=== PATIENT | female | born 1980 ===

== ENCOUNTER 2016-07-18 15:48 | Observation (INO) | payer MEDICAID, OTHER ==
[2016-07-18 16:00] VITALS: BMI 39.6
[2016-07-18] MEDS ORDERED: Lactated Ringer's 1,000 ML IV SCH (16:00)
--- NOTE | 2016-07-18 16:20 | OBHP ---
Datetime: 07/18/2016 16:13 IP Adm Impression: , intrauterine IP Chief Complaint Other: 35 year old complains of right upper quadrant pain, vomiting and diarrhea since yesterday. No blood in vomitus or stolls. No radiation of pain. Eats at home with family and no body else is sick. 2 previous C/Sections IP Admit Plan: Observation/Evaluation Admit Comment, IP Provider: Gastroenteritis, R/O Cholecystitis, R/O Appendicitis. Pelvic Type - PN: Adequate Extremities - PN: Abnormal Abdomen - PN: Normal Back - PN: Normal Breast - PN: Not Done Lungs - PN: Normal Heart - PN: Normal Thyroid - PN: Not Done Neurologic - PN: Not Done HEENT - PN: Not Done General - PN: Normal FHR - Baseline A Provider: 150 Comments, ACOG Physical Exam: Varicosities left leg Gestation - Est Wks by US: 23.0 Vital Signs Provider: Reviewed; Within Normal Limits IP Chief Complaint: Illness NICHD Decel Fetus A IP Provider: None Genitourinary Exam: Normal DTRs - PN: Normal
[2016-07-18 16:31] LABS: BASO % 0.2 % (0.0-2.0); EOS # 0.1 K/uL (0.0-0.7); EOS % 0.8 % (0.0-4.0); HEMATOCRIT 32.2 % (34.0-47.0); LYMPH % 27.1 % (20.0-40.0); MEAN CELL VOLUME 80.7 fL (81.0-99.0); MEAN CORPUSCULAR HEMOGLOBIN 26.4 pg (27.0-31.0); MEAN CORPUSCULAR HGB CONC 32.7 g/dL (33.0-37.0); MEAN PLATELET VOLUME 8.9 fL (7.2-11.7); MONO # 0.5 K/uL (0.0-0.8); MONO % 7.1 % (0.0-10.0); NRBC % 0.1 % (0.0-2.0); RED CELL DISTRIBUTION WIDTH 13.9 % (11.5-14.5); WHITE BLOOD COUNT 7.2 K/uL (4.8-10.8)
[2016-07-18 16:37] LABS: CHLORIDE 104 mmol/L (98-107)
[2016-07-18 16:38] LABS: POTASSIUM 3.6 mmol/L (3.6-5.2); SODIUM 134 mmol/L (132-148)
[2016-07-18 16:40] LABS: BILIRUBIN,TOTAL 0.6 mg/dL (0.2-1.3); CARBON DIOXIDE 20 mmol/L (22-30); GFR AFRICAN-AMERICAN > 60
[2016-07-18 16:41] LABS: ALKALINE PHOSPHATASE 71 U/L (38-126); ALT/SGPT 16 U/L (9-52); AST/SGOT 16 U/L (14-36); BLOOD UREA NITROGEN 3 mg/dL (7-17); CALCIUM 8.2 mg/dl (8.6-10.4); GLUCOSE,RANDOM 75 mg/dL (65-105); TOTAL PROTEIN 6.5 g/dL (6.3-8.3)
[2016-07-18 16:50] LABS: RBC URINE 1 /hpf (0-3); TRANSITIONAL EPITHIAL < 1 /hpf (0-3); URINE BACTERIA RARE (<OCC); URINE BILIRUBIN NEGATIVE (NEGATIVE); URINE BLOOD NEGATIVE (NEGATIVE); URINE COLOR Yellow (YELLOW); URINE GLUCOSE (UA) NORMAL (Normal); URINE KETONE TRACE mg/dL (NEGATIVE); URINE LEUKOCYTE ESTERASE NEG Leu/uL (Negative); URINE PROTEIN NEGATIVE (NEGATIVE); URINE UROBILINOGEN NORMAL mg/dL (0.2-1.0); WBC URINE 1 /hpf (0-5)
--- NOTE | 2016-07-18 18:14 | US ---
HISTORY: Cholecystitis R/O Appendicitis in COMPARISON: None. TECHNIQUE: Sonographic evaluation of the abdomen. FINDINGS: LIVER: Measures 16.7 cm. Hepatopedal blood flow. Fatty infiltration manifest ultrasonographically as increased echogenicity of the liver parenchyma. No mass. No intrahepatic bile duct dilatation. GALLBLADDER: Status post cholecystectomy. No abnormality is seen in the gallbladder fossa. COMMON BILE DUCT: Measures 11.5 mm. Dilated common bile duct without intrahepatic bile duct dilatation PANCREAS: Unremarkable as visualized. No mass. No ductal dilatation. RIGHT KIDNEY: Measures 4.8 x 14.1cm. Normal echogenicity. No calculus, mass, or hydronephrosis. LEFT KIDNEY: Measures 6.2 x 13.5cm. Normal echogenicity. No calculus, mass, or hydronephrosis. SPLEEN: Normal in size and contour. No mass. AORTA: No aneurysmal dilatation. IVC: Unremarkable. OTHER FINDINGS: Nondiagnostic assessment of the appendix. The appendix is not visualized. Incidental finding(s):. Solitary right lower quadrant lymph node identified measuring 6 x 14 mm. None. IMPRESSION: No acute findings related to/accounting for the clinical presentation.
--- NOTE | 2016-07-18 19:36 | OBPN ---
Datetime: 07/18/2016 19:34 IP Progress Impression Other: Abdominal sonogram normal IP Progress Plan: Discharge Datetime: 07/18/2016 16:13 FHR - Baseline A Provider: 150 Gestation - Est Wks by US: 23.0 Vital Signs Provider: Reviewed; Within Normal Limits NICHD Decel Fetus A IP Provider: None
== END 2016-07-18 19:45 | disposition home or self-care (01) ==
LOC: C.EROB 15:48 → C.4D 16:00 → INTOOBSV 16:00
PROVIDERS: ADMIT Obstetrics & Gynecology; ATTEND Obstetrics & Gynecology
DX: O21.9 Vomiting of pregnancy, unspecified (principal); K52.9 Noninfective gastroenteritis and colitis, unspecified; R19.7 Diarrhea, unspecified
CPT/HCPCS: 76700; 80053; 81001; 85025; 99283; G0378; J7120

== ENCOUNTER 2016-11-04 08:24 | Inpatient (IN) | payer MEDICAID ==
--- NOTE | 2016-11-04 08:20 | OBADHP ---
Datetime: 07/18/2016 16:13 IP Chief Complaint Other: 35 year old complains of right upper quadrant pain, vomiting and diarrhea since yesterday. No blood in vomitus or stolls. No radiation of pain. Eats at home with family and no body else is sick. 2 previous C/Sections Admit Comment, IP Provider: Gastroenteritis, R/O Cholecystitis, R/O Appendicitis. Pelvic Type - PN: Adequate Extremities - PN: Abnormal Abdomen - PN: Normal Back - PN: Normal Breast - PN: Not Done Lungs - PN: Normal Heart - PN: Normal Thyroid - PN: Not Done Neurologic - PN: Not Done HEENT - PN: Not Done General - PN: Normal FHR - Baseline A Provider: 150 Comments, ACOG Physical Exam: Varicosities left leg Gestation - Est Wks by US: 23.0 Vital Signs Provider: Reviewed; Within Normal Limits IP Chief Complaint: Illness NICHD Decel Fetus A IP Provider: None Genitourinary Exam: Normal DTRs - PN: Normal IP Adm Impression: , intrauterine IP Admit Plan: Observation/Evaluation
[2016-11-04 08:25] VITALS: BMI 41.1
[2016-11-04] MEDS ORDERED: Sodium Citrate/Citric Acid 15 ml Sol PO ONE (08:25)
[2016-11-04] MEDS ORDERED: cefOXitin IV 2 gm in Dextrose 2 GM/50 ML BAG IVPB ONE ×2 (08:25→09:28)
--- NOTE | 2016-11-04 08:44 | OBADHP ---
Datetime: 11/04/2016 08:37 Admit Comment, IP Provider: at 39=weeks her for schuled repeat c/s , no ctxs, vb, lof,+fm obhx 2 x c/s pmh de med pnv all nkda psh c/s mulu de a/p at 39weeks her for schuled c/s admit to l_dpo/ivf labs pain ma skin abxs or aware informed consent taken r/a/b disc Pelvic Type - PN: Adequate Extremities - PN: Normal Abdomen - PN: Normal Back - PN: Normal Breast - PN: Normal Lungs - PN: Normal Heart - PN: Normal Thyroid - PN: Normal Neurologic - PN: Normal HEENT - PN: Normal General - PN: Normal FHR - Baseline A Provider: 130 Contraction Comments Provider: occ Comments, ACOG Physical Exam: gravid,non tender IP Hx Assessment: The History has been Reviewed and is Current Vital Signs Provider: Reviewed; Within Normal Limits IP Chief Complaint: Scheduled Section NICHD Variability Prov Fetus A: Moderate 6-25bpm NICHD Accel Fetus A IP Provider: 15X15 FHR Category Provider Fetus A: Category I Genitourinary Exam: Normal DTRs - PN: Normal EGA AdmitDate IP: 39.2 IP Adm Impression: Term, intrauterine ; No Active Labor; Intact Membranes IP Admit Plan: Admit to unit; Initiate Section protocol
[2016-11-04 09:08] LABS: BASO % 0.5 % (0.0-2.0); EOS # 0.1 K/uL (0.0-0.7); EOS % 0.9 % (0.0-4.0); HEMATOCRIT 32.1 % (34.0-47.0); LYMPH # 2.5 K/uL (1.0-4.3); LYMPH % 32.6 % (20.0-40.0); MEAN CELL VOLUME 75.3 fL (81.0-99.0); MEAN CORPUSCULAR HEMOGLOBIN 24.4 pg (27.0-31.0); MEAN CORPUSCULAR HGB CONC 32.4 g/dL (33.0-37.0); MEAN PLATELET VOLUME 8.7 fL (7.2-11.7); MONO # 0.6 K/uL (0.0-0.8); MONO % 7.6 % (0.0-10.0); RED CELL DISTRIBUTION WIDTH 16.4 % (11.5-14.5); WHITE BLOOD COUNT 7.7 K/uL (4.8-10.8)
[2016-11-04 09:09] LABS: CHLORIDE 103 mmol/L (98-107)
[2016-11-04 09:10] LABS: POTASSIUM 3.7 mmol/L (3.6-5.2); SODIUM 132 mmol/L (132-148)
[2016-11-04 09:12] LABS: GFR AFRICAN-AMERICAN > 60
[2016-11-04 09:13] LABS: BLOOD UREA NITROGEN 6 mg/dL (7-17); CALCIUM 8.8 mg/dl (8.6-10.4); CARBON DIOXIDE 20 mmol/L (22-30); GLUCOSE,RANDOM 74 mg/dL (65-105); RBC URINE 4 /hpf (0-3); URINE BACTERIA FEW (<OCC); URINE BILIRUBIN NEGATIVE (NEGATIVE); URINE BLOOD NEGATIVE (NEGATIVE); URINE COLOR Amber (YELLOW); URINE GLUCOSE (UA) NORMAL (Normal); URINE KETONE NEGATIVE (NEGATIVE); URINE PROTEIN 1+ mg/dL (NEGATIVE); URINE UROBILINOGEN NORMAL mg/dL (0.2-1.0); WBC URINE 22 /hpf (0-5)
[2016-11-04 09:17] LABS: URINE LEUKOCYTE ESTERASE 1+ Leu/uL (Negative)
[2016-11-04] MEDS ORDERED: Sodium Citrate/Citric Acid 15 ml Sol ONE (09:28)
[2016-11-04] MEDS: Lactated Ringer's 1,000 ML IV SCH (10:01)
[2016-11-04] MEDS ORDERED: DiphenhydrAMINE 50 mg/ml Inj IVP PRN (11:35)
[2016-11-04] MEDS ORDERED: Oxycodone/Acetaminophen 5/325 mg Tab PO PRN (11:40)
[2016-11-04] MEDS ORDERED: Morphine 1 mg/ml preservative-free Inj(Duramorph) ONE (11:42)
[2016-11-04] MEDS ORDERED: Phenylephrine 10 mg/ml Inj ONE (11:42)
[2016-11-04] MEDS ORDERED: ePHEDrine 50 mg/ml Inj ONE ×2 (11:42)
[2016-11-04] MEDS ORDERED: Oxytocin 20 units in LR 2,000 ML IV ONE (12:01)
[2016-11-04] MEDS ORDERED: Methylene Blue 10 mg/mL(10ml) IV ONE (12:38)
--- NOTE | 2016-11-04 13:20 | PCM.SURG1 ---
Surgeon's Initial Post Op Note - Surgeon's Notes Surgeon: dr alexis Smearer: dr caceres Type of Anesthesia: Spinal Anesthesia Administered By: dr jha Pre-Operative Diagnosis: 35 yr at 39wees elective repeat c/s Operative Findings: see the op reoprt Post-Operative Diagnosis: same with adhsions Operation Performed: repeat section and lysis of adhesions Specimen/Specimens Removed: fetus. placente. cord blood Estimated Blood Loss: EBL {In ML}: 900 Blood Products Given: N/A Drains Used: No Drains Post-Op Condition: Good Date of Surgery/Procedure: 11/11/16 Time of Surgery/Procedure: 14:00
--- NOTE | 2016-11-04 13:26 | OBDS ---
DELIVERY PERSONNEL Delivery Doctor: Rachell Roberson MD Scrub Nurse: Nadja Whitman Bakery Technician: Gaby Mahmood RN Anesthesiologist: Tatianna Way MD MATERNAL INFORMATION Delivery Anesthesia: Spinal Medications in Delivery: Pitocin Estimated Blood Loss (ml): 900 Maternal Complications: None RN Comments: Rc/section to a live baby girl attended to by dr. Ferris and Isaura Victor. 9:9, stabl e, skin to skin done with mother . Provider Comments: baby deliverd in dop. cord arround neck. adhesions. no com LABOR SUMMARY EDC: 11/09/2016 00:00 No. Babies in Womb: 1 Attempted: No Labor Anesthesia: None LABOR INFORMATION Group B Beta Strep: Negative Antibiotics # of Doses: 1 Antibiotics Time of Last Dose: 1130 Steroids Given: None Reason Steroids Not Administered: Not Applicable MEMBRANES Membranes Rupture Method: Artificial Rupture of Membranes: 11/04/2016 12:07 Length of Rupture (hrs): 0.08 Amniotic Fluid Color: Clear Amniotic Fluid Amount: Moderate Amniotic Fluid Odor: Normal STAGES OF LABOR Stage 3 hrs: 0 Stage 3 min: 1 CSECTION DELIVERY Primary Indication: Repeat Elective Secondary Indication: N/A CSection Urgency: Elective CSection Incidence: Repeat Labor: No Labor Elective: Elective CSection Incision: Lower Uterine Transverse BABY A INFORMATION Infant Delivery Date/Time: 11/04/2016 12:12 Method of Delivery: Born in Route : No : N/A Forceps: N/A Vacuum Extraction: N/A Shoulder Dystocia : No SHOULDER DYSTOCIA BABY A Infant Delivery Date/Time: 11/04/2016 12:12 PRESENTATION/POSITION BABY A Presentation: Cephalic Cephalic Presentation: Vertex Vertex Position: Right Occipital Posterior Breech Presentation: N/A PLACENTA INFORMATION BABY A Placenta Delivery Time : 11/04/2016 12:13 Placenta Method of Delivery: Manual Removal Placenta Status: Delivered SCORES BABY A Heart Rate 1 min: >100 bpm Resp Effort 1 min: Good Cry Reflex Irritability 1 min: Cough or Sneeze or Pulls Away Muscle Tone 1 min: Active Motion Color 1 min: Body [place], Extremities Blue SCORE 1 MIN: 9 Heart Rate 5 min: >100 bpm Resp Effort 5 min: Good Cry Reflex Irritability 5 min: Cough or Sneeze or Pulls Away Muscle Tone 5 min: Active Motion Color 5 min: Body [place], Extremities Blue SCORE 5 MIN: 9 INFORMATION BABY A Gestational Age at Delivery: 39.2 Gestational Status: Term Outcome : Liveborn Infant Condition : Stable Sex: Female IDENTIFICATION/MEDS BABY A ID Band Number: [id number] Sensor Number: [id number] WEIGHT/LENGTH BABY A Infant Birthweight (gms): 3645 Infant Weight (lb): 8 Weight (oz): 1 Length Inches: 20.25 Infant Length cms: 51.4 CORD INFORMATION BABY A No. Cord Vessels: 3 Nuchal Cord : Around Neck x1, Loose Nuchal Cord Other: n/a True Knot: 0 Cord Blood Taken: Yes Banking/Donate Info: n/a Suction: Mouth; Nose ASSESSMENT BABY A Infant Complications: None Physical Findings at Delivery: Within Normal Limits Respirations: Appears Normal Polishing Machine Tender/ALS Called : No Care By: DR. Ferris/ Candace ATKINS Transferred To: Remains with Mother
[2016-11-05] MEDS: Lactated Ringer's 1,000 ML IV SCH (00:26)
[2016-11-05] MEDS: Simethicone 80 mg Chewtab PO SCH ×5 (00:27→21:29)
--- NOTE | 2016-11-05 04:56 | OP ---
PREOPERATIVE DIAGNOSIS: A 35-year-old 3, para 2, at 39 weeks and 2 days, with a scheduled for repeat section. SURGEON: Jaciel Roberson MD IC DESIGN MANAGER: Dr. Rose, who was present throughout the surgery for exposure, retraction, pushing at the time of delivery, and helping with the . TYPE OF ANESTHESIA: Spinal. ANESTHESIOLOGIST: Dr. Way. COMPLICATIONS: None. ESTIMATED BLOOD LOSS: 900 mL. PROCEDURES PERFORMED: Repeat section and lysis of adhesions. DESCRIPTION OF THE PROCEDURE: After informed consent was obtained, the patient was brought to the operating room, placed on the table where spinal anesthesia was given. When anesthesia was found to be sufficient, she was prepped and draped in normal sterile fashion. A Kulkarni catheter was then inserted under sterile condition. At the site of the previous skin incision, an incision was made with a knife, the subcutaneous cut with a Bovie. The fascia was very adherent to the peritoneum. The fascia was cut with the knife. The peritoneum was very stuck to the bladder, so it was retracted back using the knife. It seemed there was no fascia on the upper part of the abdomen, so it was retracted using the knife. The patient had a lot of scarring, so the scarring was taken out using Metzenbaum scissors. Then, two Allises were used and the pelvic cavity visualized. We went to the abdominal cavity, bladder blade was placed, and bladder flap was created. Lower uterine segment incision was made using Alcala scissors. The baby was identified in a low direct occiput position. There was a cord around the neck, which was reduced. The cord was clamped and cut and the baby was handed to the waiting ux designer. Placenta delivered manually and sent to the pathology. Uterus was exteriorized and cleared of all clots and debris. Uterine incision was closed using #1 Vicryl in running interlocking fashion. Second layer was closed with the same stitch. Tubes and ovaries looked normal. The uterus was returned back to abdominal cavity. At the site of the bladder, there was a big vessel which started bleeding. A few chromic stitches were used. To make sure that the integrity of the bladder was intact, the decision was to give methylene blue. Methylene blue was placed in the bladder and there was no blue staining seen in the abdomen. So, a lot of Interceed was done. Laps were removed from the belly. It was hemostatic. Peritoneum closed using 2-0 Vicryl in nonlocking fashion, muscle layer closed with 0 Vicryl in interrupted fashion. The fascia was closed using #1 Vicryl in running interlocking fashion, #0 Vicryl interrupted for subcutaneous tissue. Skin was closed using laly. The patient tolerated the procedure well. Lap, sponge, and instrument counts were correct x2. Jaciel Roberson MD
[2016-11-05 08:11] LABS: HEMATOCRIT 30.9 % (34.0-47.0); MEAN CELL VOLUME 75.9 fL (81.0-99.0); MEAN CORPUSCULAR HEMOGLOBIN 24.7 pg (27.0-31.0); MEAN CORPUSCULAR HGB CONC 32.5 g/dL (33.0-37.0); MEAN PLATELET VOLUME 9.1 fL (7.2-11.7); RED CELL DISTRIBUTION WIDTH 16.8 % (11.5-14.5); WHITE BLOOD COUNT 9.7 K/uL (4.8-10.8)
--- NOTE | 2016-11-05 09:16 | OBPPN ---
Datetime: 11/05/2016 09:10 PP Pain Prov: Within normal limits PP Nausea Prov: Denies PP Flatus Prov: No PP Heart Prov: Normal PP Lungs Prov: Normal PP Abdomen/Uterus Prov: Normal PP CVA Tenderness Prov: Normal PP Extremities Prov: Normal PP C/S Incision Prov: Normal PP Progress Prov: Normal PP Impression Prov: Normal progression PP Plan Prov: Continue present management PP Progress Note Prov: S-patient reports that her pain is well controlled.She is tolerating regular diet.Ambulating and voiding without difficulty.Breast feeding.No faltys.tolerating clears O-VSS afebrile Fundus firm and below umbilcius Dressing clean, dry and intact Extremities no calf tenderness A/P Patient s/p csection pod 1 doing well.Note dto be anemic on admission -advance diet -encourage po fluid intake and ambulation -follow up am cbc -start iron once daily Vital Signs Provider PP: Reviewed; Within Normal Limits
[2016-11-05] MEDS ORDERED: Bisacodyl 5mg EC Tab PO ONE (11:41)
[2016-11-05] MEDS: Oxycodone/Acetaminophen 5/325 mg Tab PO PRN (18:20)
[2016-11-06] MEDS: Simethicone 80 mg Chewtab PO SCH ×4 (10:12→21:37)
[2016-11-06] MEDS ORDERED: Oxycodone/Acetaminophen 5/325 mg Tab ONE (10:12)
[2016-11-06] MEDS: Oxycodone/Acetaminophen 5/325 mg Tab PO PRN ×2 (10:13→21:36)
--- NOTE | 2016-11-06 13:23 | OBPPN ---
Datetime: 11/06/2016 13:07 PP Pain Prov: Within normal limits PP Nausea Prov: Denies PP Flatus Prov: Yes PP BM Prov: Yes PP Breasts Prov: Normal PP Heart Prov: Normal PP Lungs Prov: Normal PP Abdomen/Uterus Prov: Normal PP Lochia Prov: Normal PP Vulva/Perineum Prov: Not Done PP CVA Tenderness Prov: Normal PP Extremities Prov: Normal PP C/S Incision Prov: Normal PP Progress Prov: Normal PP Comments Phys Exam Prov: Abdomen: Obese. Soft. Non distended. (+) ABS. Incision with laly - cl nicole, dry, intact. Mild lochia rubra Extremities: no calf tenderness; trace pedal edema bilaterally. All other systems reveiwed and are negative PP Impression Prov: Normal progression PP Plan Prov: Continue present management PP Progress Note Prov: Patient received in bed in room 452; family members in room. . Reports loose BM x 1 yesterday; has not had a BM thus far today. (+) incisional pain; pain scale 7/1 0 - relieved with pain meds. Ambulating, voiding without difficulty. Elijah nause, vomiting; dizzines s, lightheadedness; palpitations, shortness of breath. P.E.: as above. Obese, in NAD. Awake, alert, oriented to time, person and place. Pleasant and coop erative - POD#1 H/H 10.0/30.9. Rh(+) Assessment: POD#2, 35 y.o. P3, S/P C/S #3. Afebrile, vital signs stable. Anemia noted; chronic - asymptomatic and hemodynamically stable. Loose BM noted. Patient advised to observe and minimize p.o. intake of fresh fruits and vegetables until stools are more formed. NB: patient has moved to [facility]; moved the weekend prior to her delivery. To this end, will have follow with her ne w Ob-senior facilities manager provider in [place]. Clinicaly stable. Plan: 1) As above. 2) Anticipate discharge home 10/1716 Vital Signs Provider PP: Reviewed
[2016-11-07] MEDS: Oxycodone/Acetaminophen 5/325 mg Tab PO PRN (05:25)
[2016-11-07 08:36] VITALS: BP 95/61; PULSE 96; RESP 18; TEMP 97.6; O2SAT 97
--- NOTE | 2016-11-07 08:48 | OBPPN ---
Datetime: 11/07/2016 08:44 PP Pain Prov: Within normal limits PP Nausea Prov: Denies PP Flatus Prov: Yes PP BM Prov: Yes PP Breasts Prov: Normal PP Heart Prov: Normal PP Lungs Prov: Normal PP Abdomen/Uterus Prov: Normal PP Lochia Prov: Normal PP CVA Tenderness Prov: Normal PP Extremities Prov: Normal PP C/S Incision Prov: Normal PP Progress Prov: Normal PP Impression Prov: Normal progression PP Plan Prov: Discharge PP Progress Note Prov: S-patient reports that her pain is controlled with pain meds.Ambulating and v oiding without difficulty.Denies nausea, vomiting, headache, chest pain, shortness of breath, numbnes s or tingling in hands and feet O-VSS Afebrile Fundus firm and below umbilcius Incision clean, dry and intact extremities- no calf tenderness A/P Patient s/p csection pod 3 doing well -discharge today -follow up in clinic in 1 week for staple removal -dischareg isntrcutions given to patient Vital Signs Provider PP: Reviewed; Within Normal Limits
--- NOTE | 2016-11-07 08:54 | OBDCSUM ---
Datetime: 11/07/2016 08:51 Discharged to, Provider: Home Follow up at, Provider: obgyn clinic Disch Instr Diet: Regular Discharge Instructions, Provider: Routine instructions given Discharge Diagnosis, Provider: Term Delivered Discharge Time: 11/07/2016 08:51 Follow up in weeks, Provider: 1 week Disch Referrals: None Disch Activity Restrictions: No exercising; No lifting; Minimize stair-climbing; No sexual activity; Nothing in vagina - Star, tampons, douche Discharge Comment, Provider: go to er if you experience severe pain, heavy bleeding, any discharge f rom incision, redness or pain in calf muscles or any other problems Discharge Diagnosis Prov Other: s/p csection
[2016-11-07] MEDS: Simethicone 80 mg Chewtab PO SCH (09:46)
== END 2016-11-07 13:15 | disposition home or self-care (01) | DRG 370 ==
LOC: C.4D 08:24 → C.4M 16:30
PROVIDERS: ADMIT Obstetrics & Gynecology; ATTEND Obstetrics & Gynecology
PROC: 10D00Z1 Extraction of Products of Conception, Low, Open Approach (ICD-10-PCS; principal; 2016-11-04)
PROC: 0DNW0ZZ Release Peritoneum, Open Approach (ICD-10-PCS; 2016-11-04)
DX: O34.211 Maternal care for low transverse scar from previous cesarean delivery (principal); O99.89 Other specified diseases and conditions complicating pregnancy, childbirth and the puerperium; N85.8 Other specified noninflammatory disorders of uterus; O99.02 Anemia complicating childbirth; N73.6 Female pelvic peritoneal adhesions (postinfective); O69.81X0 Labor and delivery complicated by cord around neck, without compression, not applicable or unspecified; D64.9 Anemia, unspecified; O99.214 Obesity complicating childbirth; E66.9 Obesity, unspecified; Z3A.39 39 weeks gestation of pregnancy; Z37.0 Single live birth

== ENCOUNTER 2017-09-14 04:03 | Emergency (ER) | payer SELFPAY ==
[2017-09-14 04:03] VITALS: BMI 41.1
[2017-09-14 04:12] VITALS: BP 124/88; RESP 20; O2SAT 98
--- NOTE | 2017-09-14 04:37 | C.PDOC ---
History Of Present Illness 36 year old female presents to the ED c/o sore throat, cough, URI symptoms. Patient states she is not taking nay medications at this time and sandhu snot have any allergies. Patient denies fever, chills, nausea, vomit, diarrhea, rash. Chief Complaint (Nursing): Cough, Cold, Congestion History Per: Patient History/Exam Limitations: no limitations Onset/Duration Of Symptoms: Hrs Current Symptoms Are (Timing): Still Present Location Of Pain: Throat Sick Contacts (Context): None Associated Symptoms: Sore Throat, Cough Ear Symptoms: Bilateral: None Recent travel outside of the [place]: No Additional History Per: Patient Past Medical History Reviewed: Historical Data, Nursing Documentation, Vital Signs Vital Signs: Last Vital Signs Temp 98.1 F 09/14/17 04:06 Pulse 106 H 09/14/17 04:06 Resp 20 09/14/17 04:06 BP 124/88 09/14/17 04:06 Pulse Ox 98 09/14/17 04:49 - Medical History PMH: No Chronic Diseases Denies: Depression, Diabetes, HTN Surgical History: No Surg Hx - [facility] Procedures EXTRACTION OF POC, LOW CERVICAL, OPEN APPROACH (11/04/16) RELEASE PERITONEUM, OPEN APPROACH (11/04/16) Family History: States: Unknown Family Hx - Social History Hx Alcohol Use: Yes Hx Substance Use: No - Immunization History Hx Tetanus Toxoid Vaccination: No Hx Influenza Vaccination: No Hx Pneumococcal Vaccination: No Review Of Systems Constitutional: Negative for: Fever, Chills ENT: Positive for: Throat Pain. Negative for: Nose Discharge, Nose Congestion Cardiovascular: Negative for: Chest Pain Respiratory: Positive for: Cough. Negative for: Shortness of Breath Gastrointestinal: Negative for: Nausea, Vomiting Skin: Negative for: Rash Neurological: Negative for: Weakness, Numbness Physical Exam - Physical Exam Appears: Non-toxic, No Acute Distress Skin: Normal Color, Warm, Dry Head: Atraumatic, Normacephalic Eye(s): bilateral: Normal Inspection Ear(s): Bilateral: Normal Oral Mucosa: Moist Throat: Normal, No Erythema, No Exudate Neck: Normal ROM, Supple Chest: Symmetrical Cardiovascular: Rhythm Regular Respiratory: Normal Breath Sounds, No Rales, No Rhonchi, No Wheezing Gastrointestinal/Abdominal: Soft, No Tenderness, No Guarding, No Rebound Extremity: Normal ROM, No Tenderness, No Swelling Neurological/Psych: Oriented x3, Normal Speech Gait: Steady ED Course And Treatment O2 Sat by Pulse Oximetry: 98 (On RA) Pulse Ox Interpretation: Normal Medical Decision Making Medical Decision Making: Impression: URI Plan: * Decadron 10 mg PO Disposition Counseled Patient/Family Regarding: Diagnosis - Disposition Disposition: HOME/ ROUTINE Disposition Time: 04:55 Condition: GOOD Instructions: Upper Respiratory Infection (ED) Forms: [employer] ([employer]) - Clinical Impression Clinical Impression: Viral disease, Pharyngitis - Scribe Statement The provider has reviewed the documentation as recorded by the Scribe Reno Benitez All medical record entries made by the Scribe were at my direction and personally dictated by me. I have reviewed the chart and agree that the record accurately reflects my personal performance of the history, physical exam, medical decision making, and the department course for this patient. I have also personally directed, reviewed, and agree with the discharge instructions and disposition.
[2017-09-14 05:52] VITALS: PULSE 82; TEMP 98.4
== END 2017-09-14 05:49 | disposition home or self-care (01) ==
LOC: C.ER 04:03
DX: J02.9 Acute pharyngitis, unspecified (principal); B34.9 Viral infection, unspecified; Z87.891 Personal history of nicotine dependence
CPT/HCPCS: 99283; J8540

== ENCOUNTER 2018-07-06 10:39 | Observation (INO) | payer SELFPAY ==
[2018-07-06 10:49] VITALS: BMI 32.8
--- NOTE | 2018-07-06 11:23 | C.PDOC ---
History Of Present Illness PELVIC CRAMPING, INCR VB W CLOTS TODAY. . NO OTHER ASSOC SX SEEN 06/22 AND 06/26 @ [facility] FOR SPONT MISCARRIAGE, DEPRESSION EXAM MILD DIST NONTOXIC HEENT NO PALLOR ABD +SUPRAPUB TEND SOFT NT ND NO R/G REMAINDER NEG Time Seen by Provider: 07/06/18 11:03 Chief Complaint (Nursing): Female Genitourinary History Per: Patient History/Exam Limitations: no limitations Onset/Duration Of Symptoms: Days Current Symptoms Are (Timing): Still Present Severity: Moderate Past Medical History Reviewed: Historical Data, Nursing Documentation, Vital Signs Vital Signs: Last Vital Signs Temp 98.6 F 07/06/18 10:51 Pulse 93 H 07/06/18 10:51 Resp 17 07/06/18 10:51 BP 106/72 07/06/18 10:51 Pulse Ox 99 07/06/18 10:51 - Medical History PMH: No Chronic Diseases Denies: Depression, Diabetes, Hepatitis, HIV, HTN, Seizures, Sexually Transmitted Disease Surgical History: - [facility] Procedures EXTRACTION OF POC, LOW CERVICAL, OPEN APPROACH (11/04/16) RELEASE PERITONEUM, OPEN APPROACH (11/04/16) Family History: States: No Known Family Hx - Social History Hx Alcohol Use: No Hx Substance Use: No - Immunization History Hx Tetanus Toxoid Vaccination: No Hx Influenza Vaccination: No Hx Pneumococcal Vaccination: No Review Of Systems Except As Marked, All Systems Reviewed And Found Negative. Constitutional: Negative for: Fever, Chills Gastrointestinal: Negative for: Nausea, Vomiting, Abdominal Pain Genitourinary: Positive for: Vaginal Bleeding, Pelvic Pain Physical Exam - Physical Exam Appears: Non-toxic, Other (mild distress) Skin: Normal Color (no pallor), Warm, Dry Head: Atraumatic, Normacephalic Eye(s): bilateral: Normal Inspection Neck: Supple Chest: Symmetrical Cardiovascular: Rhythm Regular Respiratory: Normal Breath Sounds, No Rales, No Rhonchi, No Wheezing Gastrointestinal/Abdominal: Soft, Tenderness (suprapubic tenderness), No Distention, No Guarding, No Rebound Neurological/Psych: Oriented x3, Normal Speech ED Course And Treatment - Laboratory Results Result Diagrams: 07/06/18 13:04 07/06/18 13:04 O2 Sat by Pulse Oximetry: 99 (RA) Pulse Ox Interpretation: Normal - CT Scan/US US Other Rad Studies (CT/US): Read By Radiologist, Radiology Report Reviewed CT/US Interpretation: Date of service: 07/06/2018. HISTORY: VB R/O RETAINED POC. COMPARISON: CT abdomen and pelvis from 12/23/2015. TECHNIQUE: Transabdominal and transvaginal pelvic ultrasound was performed. FINDINGS: UTERUS: Measures 12.9 x 7.9 x 9.3 cm. Normal in size and appearance. No fibroid or other mass lesion seen. ENDOMETRIUM: Measures 3.3 cm in diameter. The central endometrial echo complex is thick and heterogeneous with mild increased vascularity.. CERVIX: No cervical abnormality identified. RIGHT OVARY: Measures 2.9 x 2.1 x 2.8 cm. No solid mass. Normal flow. LEFT OVARY: Measures 3.9 x 1.9 x 3.2 cm. No solid mass. Normal flow. There is a 3.1 x 2.5 x 3.0 cm c yst with internal echoes. FREE FLUID: No significant free fluid noted. OTHER FINDINGS: None. IMPRESSION: Thick heterogeneous central endometrial echo complex with mild increased vascularity findings could represent retained products of conception in the appropriate clinical setting. 3.1 cm complicated left ovarian cyst stable since the CT examination from 12/23/2015. Progress - Re-Evaluation Re-evaluation Note: 07/06/18 14:18 D/W DR MARTIN OBGYN FIREPOT OPERATOR AND TENDER AWARE OF ER FIDNINGS WILL EVAL IN ER 07/06/18 15:[address] MARTIN TO OR FOR D&C - Data Reviewed Data Reviewed: Lab, Diagnostic imaging, Old records Medical Decision Making Medical Decision Making: Plan: --Labs --UA --US-Transvag. --Toradol IV Disposition Counseled Patient/Family Regarding: Studies Performed, Diagnosis - Disposition Disposition: HOSPITALIZED Disposition Time: 15:20 Condition: SERIOUS - POA Present On Arrival: None - Clinical Impression Clinical Impression: Retained products of conception - Scribe Statement The provider has reviewed the documentation as recorded by the Arron Powers Provider Attestation: All medical record entries made by the Scribe were at my direction and personally dictated by me. I have reviewed the chart and agree that the record accurately reflects my personal performance of the history, physical exam, medical decision making, and the department course for this patient. I have also personally directed, reviewed, and agree with the discharge instructions and disposition.
[2018-07-06 12:07] LABS: URINE BACTERIA RARE (<OCC)
[2018-07-06 12:10] LABS: URINE CLARITY Turbid (Clear); URINE COLOR RED (YELLOW)
[2018-07-06] MEDS ORDERED: Sodium Chloride 0.9% 1,000 ML ONE (12:10)
[2018-07-06 12:11] LABS: URINE BILIRUBIN NEGATIVE (NEGATIVE); URINE BLOOD LARGE (NEGATIVE); URINE GLUCOSE (UA) 100 mg/dL (Normal)
[2018-07-06 12:12] LABS: URINE LEUKOCYTE ESTERASE MODERATE Leu/uL (Negative); URINE PROTEIN >=300 mg/dL (NEGATIVE); URINE UROBILINOGEN >8.0 mg/dL (0.2-1.0)
--- NOTE | 2018-07-06 13:12 | US ---
Date of service: 07/06/2018 HISTORY: VB R/O RETAINED POC COMPARISON: CT abdomen and pelvis from 12/23/2015. TECHNIQUE: Transabdominal and transvaginal pelvic ultrasound was performed. FINDINGS: UTERUS: Measures 12.9 x 7.9 x 9.3 cm. Normal in size and appearance. No fibroid or other mass lesion seen. ENDOMETRIUM: Measures 3.3 cm in diameter. The central endometrial echo complex is thick and heterogeneous with mild increased vascularity.. CERVIX: No cervical abnormality identified. RIGHT OVARY: Measures 2.9 x 2.1 x 2.8 cm. No solid mass. Normal flow. LEFT OVARY: Measures 3.9 x 1.9 x 3.2 cm. No solid mass. Normal flow. There is a 3.1 x 2.5 x 3.0 cm cyst with internal echoes. FREE FLUID: No significant free fluid noted. OTHER FINDINGS: None. IMPRESSION: Thick heterogeneous central endometrial echo complex with mild increased vascularity findings could represent retained products of conception in the appropriate clinical setting. 3.1 cm complicated left ovarian cyst stable since the CT examination from 12/23/2015.
[2018-07-06 13:34] LABS: BASO % 0.3 % (0.0-2.0); EOS % 0.4 % (0.0-4.0); HEMOGLOBIN 10.8 g/dL (11.0-16.0); LYMPH # 1.6 K/uL (1.0-4.3); LYMPH % 12.2 % (20.0-40.0); MEAN CORPUSCULAR HEMOGLOBIN 27.2 pg (27.0-31.0); MEAN CORPUSCULAR HGB CONC 33.2 g/dL (33.0-37.0); MEAN PLATELET VOLUME 8.5 fL (7.2-11.7); MONO # 0.8 K/uL (0.0-0.8); MONO % 6.3 % (0.0-10.0); NEUT # 10.3 K/uL (1.8-7.0); NEUT % 80.8 % (50.0-75.0); NRBC % 0.1 % (0.0-2.0); RBC 3.98 Mil/uL (3.80-5.20); RED CELL DISTRIBUTION WIDTH 13.9 % (11.5-14.5); WHITE BLOOD COUNT 12.7 K/uL (4.8-10.8)
[2018-07-06] MEDS ORDERED: cefTRIAXone IV 1 gm in Dextros 50 ML IV STA (13:45)
[2018-07-06 13:50] LABS: ALB/GLOB RATIO 1.2 (1.0-2.1); ALT/SGPT 42 U/L (9-52); AST/SGOT 52 U/L (14-36); BLOOD UREA NITROGEN 6 mg/dL (7-17); CALCIUM 9.3 mg/dl (8.6-10.4); GFR NON-AFRICAN AMERICAN > 60
[2018-07-06] MEDS ORDERED: Lactated Ringer's 1,000 ML IV SCH (15:30)
[2018-07-06] MEDS ORDERED: ceFAZolin IV 1 gm in Dextrose 1 GM/50 ML BAG IVPB ONE (15:52)
--- NOTE | 2018-07-06 16:00 | CP.PCM.CON ---
History of Present Illness - History of Present Illness History of Present Illness: Called by ER Dr Resendiz to evaluate pt with c/o heavy bleeding and incomplete AB. Pt is a 37yo LMP 03/13/18 who was diagnosed with complete AB in [facility] ED when she presented on 06/22/18 w/ c/o bleeding and passed poc along with blood c lots. Pt now presents with c/o heavy bleeding while at work associated with fist sized blood clots, feeling faint, and painful cramps. She denies fever. POBHX: CD x3 PMHX: denies PSHX: as above NKDA MEDIC: denies Review of Systems - Constitutional Constitutional: absent: Anorexia, Chills, Fever - Cardiovascular Cardiovascular: absent: Chest Pain, Dyspnea on Exertion - Respiratory Respiratory: absent: Cough, Dyspnea - Genitourinary Genitourinary: absent: Change in Urinary Stream - Reproductive: Female Reproductive:Female: Abnormal Vaginal Bleeding. absent: Genital Lesions Past Patient History - Past Social History Smoking Status: Former Smoker Alcohol: None Drugs: Denies - CARDIAC Hx Cardiac Disorders: No Hx Hypertension: No - PULMONARY Hx Respiratory Disorders: No Hx Tuberculosis: No - NEUROLOGICAL Hx Neurological Disorder: No Hx Seizures: No - HEMATOLOGICAL/ONCOLOGICAL Hx Human Immunodeficiency Virus (HIV): No - GENITOURINARY/GYNECOLOGICAL Hx Sexually Transmitted Disorders: No - PSYCHIATRIC Hx Depression: No Hx Substance Use: No - SURGICAL HISTORY Hx Surgeries: Yes (SEE COMMENT) Hx Section: Yes (X3 (2002,2008,2016)) Meds Allergies/Adverse Reactions: Allergies Allergy/AdvReac Type Severity Reaction Status Date / Time No Known Allergies Allergy Verified 07/06/18 10:48 - Medications Medications: Current Medications Lactated Ringer's (Lactated Ringer's) 1,000 mls @ 125 mls/hr IV .Q8H DORENE Cefazolin Sodium/Dextrose (Ancef Iv 1 Gm Duplex) 1 gm in 50 mls @ 100 mls/hr IVPB ONCE ONE; Protocol Stop: 07/06/18 16:21 Physical Exam - Constitutional Appears: No Acute Distress - Head Exam Head Exam: ATRAUMATIC, NORMOCEPHALIC - Respiratory Exam Respiratory Exam: NORMAL BREATHING PATTERN - Cardiovascular Exam Cardiovascular Exam: REGULAR RHYTHM - GI/Abdominal Exam GI & Abdominal Exam: Normal Bowel Sounds, Soft. absent: Rigid, Tenderness - Exam External exam: NORMAL EXTERNAL EXAM Speculum exam: Tissue (+tissue within the vaginal vault), Vaginal Bleeding. absent: Laceration Bimanual exam: absent: Adenexal Mass, Cervical Motion Tendernes, NORMAL BIMANUAL EXAM (as above; cvx 5mm dilated), Uterine Tenderness - Back Exam Back exam: NORMAL INSPECTION - Neurological Exam Neurological exam: Oriented x3 Results - Vital Signs Recent Vital Signs: Last Vital Signs Temp 98.6 F 07/06/18 10:51 Pulse 93 H 07/06/18 10:51 Resp 17 07/06/18 10:51 BP 106/72 07/06/18 10:51 Pulse Ox 99 07/06/18 15:20 - Labs Result Diagrams: 07/06/18 13:04 07/06/18 13:04 Labs: Laboratory Results - last 24 hr 07/06/18 07/06/18 07/06/18 11:52 13:04 13:04 WBC 12.7 H RBC 3.98 Hgb 10.8 L Hct 32.6 L MCV 82.0 D MCH 27.2 MCHC 33.2 RDW 13.9 Plt Count 322 D MPV 8.5 Neut % (Auto) 80.8 H Lymph % (Auto) 12.2 L Craig % (Auto) 6.3 Eos % (Auto) 0.4 Baso % (Auto) 0.3 Neut # (Auto) 10.3 H Lymph # (Auto) 1.6 Craig # (Auto) 0.8 Eos # (Auto) 0.0 Baso # (Auto) 0.0 Sodium 135 Potassium 4.1 Chloride 101 Carbon Dioxide 22 Anion Gap 16 BUN 6 L Creatinine 0.4 L Est GFR ( Amer) > 60 Est GFR (Non-Af Amer) > 60 Random Glucose 99 D Calcium 9.3 Total Bilirubin 0.3 AST 52 H D ALT 42 Alkaline Phosphatase 124 Total Protein 7.4 Albumin 4.0 Globulin 3.4 Albumin/Globulin Ratio 1.2 Beta HCG, Quant 795.34 Urine Color Red Urine Clarity Turbid Urine pH 5.0 Ur Specific [place] 1.020 Urine Protein >=300 Urine Glucose (UA) 100 Urine Ketones 40 Urine Blood Large Urine Nitrate Positive H Urine Bilirubin Negative Urine Urobilinogen >8.0 Ur Leukocyte Esterase Moderate Urine WBC (Auto) 57 H Urine RBC (Auto) 32809 H Urine Bacteria Rare Blood Type Antibody Screen 07/06/18 13:04 WBC RBC Hgb Hct MCV MCH MCHC RDW Plt Count MPV Neut % (Auto) Lymph % (Auto) Craig % (Auto) Eos % (Auto) Baso % (Auto) Neut # (Auto) Lymph # (Auto) Craig # (Auto) Eos # (Auto) Baso # (Auto) Sodium Potassium Chloride Carbon Dioxide Anion Gap BUN Creatinine Est GFR ( Amer) Est GFR (Non-Af Amer) Random Glucose Calcium Total Bilirubin AST ALT Alkaline Phosphatase Total Protein Albumin Globulin Albumin/Globulin Ratio Beta HCG, Quant Urine Color Urine Clarity Urine pH Ur Specific [place] Urine Protein Urine Glucose (UA) Urine Ketones Urine Blood Urine Nitrate Urine Bilirubin Urine Urobilinogen Ur Leukocyte Esterase Urine WBC (Auto) Urine RBC (Auto) Urine Bacteria Blood Type B POSITIVE Antibody Screen Negative - Imaging and Cardiology US - abdomen Status: Image reviewed by me (pelvic us: thickened 3.3cm heterogeneous endometrial echo fundal), Report reviewed by me Assessment & Plan - Assessment and Plan (Free Text) Assessment: I: Retained products of conception P: Pt advised she may still have some bleeding which can be treated with cytotec . Pt prefers surgical management - states she had bleeding before in [facility] and believe was completed. She felt faint earlier and does not want continued bleeding. Informed consent was obtained for D&C Informed conset obtained for possible blood transfusion.
[2018-07-06] MEDS ORDERED: cefTRIAXone 1 gm 0 GM/0 ML BAG IVPB ONE (16:23)
[2018-07-06] MEDS ORDERED: ceFAZolin 1 gm in NS 0 GM/0 ML BAG IVPB ONE (16:24)
[2018-07-06] MEDS ORDERED: Oxytocin 10 Units/ml Inj ONE ×2 (16:24→17:37)
[2018-07-06] MEDS ORDERED: ceFAZolin 1 gm in NS 1 GM/100 ML BAG IVPB ONE (16:28)
[2018-07-06 16:59] LABS: INR 1.1; PROTHROMBIN TIME 12.2 SECONDS (9.7-12.2)
[2018-07-06] MEDS ORDERED: HYDROmorphone 0.5 mg/0.5 ml ISec IVP PRN (17:01)
[2018-07-06] MEDS ORDERED: Midazolam 2 MG/2 ML VIAL ONE (17:08)
[2018-07-06] MEDS ORDERED: Propofol 10 mg/ml Inj (20 ML) ONE (17:11)
[2018-07-06] MEDS ORDERED: Phenylephrine 10 mg/ml Inj ONE (17:28)
[2018-07-06] MEDS ORDERED: Atropine-Diphenoxylate 0.025-2.5 mg Tab PO STA ×2 (17:55→18:03)
[2018-07-06 18:10] LABS: SQUAMOUS EPITHIAL 2 /hpf (0-5); URINE BACTERIA OCC (<OCC)
[2018-07-06 18:12] LABS: URINE BILIRUBIN NEGATIVE (NEGATIVE); URINE BLOOD NEGATIVE (NEGATIVE); URINE CLARITY Clear (Clear); URINE COLOR YELLOW (YELLOW); URINE GLUCOSE (UA) NEGATIVE (Normal); URINE PROTEIN NEGATIVE (NEGATIVE)
[2018-07-06 18:13] LABS: URINE LEUKOCYTE ESTERASE NEGATIVE Leu/uL (Negative)
[2018-07-06 18:57] VITALS: O2SAT 99
[2018-07-06 19:02] VITALS: BP 113/76; PULSE 80; RESP 18; TEMP 97.2
[2018-07-06] MEDS ORDERED: Oxycodone/Acetaminophen 5/325 mg Tab PO PRN (19:42)
== END 2018-07-06 23:10 | disposition home or self-care (01) ==
LOC: C.ER 10:39 → C.4M 15:21
PROVIDERS: ADMIT Obstetrics & Gynecology; ATTEND Obstetrics & Gynecology
DX: O03.4 Incomplete spontaneous abortion without complication (principal); F32.9 Major depressive disorder, single episode, unspecified; O09.529 Supervision of elderly multigravida, unspecified trimester; Z87.891 Personal history of nicotine dependence; Z98.891 History of uterine scar from previous surgery
CPT/HCPCS: 59812; 76830; 76856; 80053; 81001; 84702; 85025; 85610; 85730; 86850; 86900; 87086; 88305; 96374; 99284; G0378; J0690; J0696; J1885; J2250; J2370; J2704; J3010; J7120